=== PATIENT | male | born 1965 | race Caucasian/White ===

== ENCOUNTER 2020-08-03 05:45 | Day surgery (SDC) | payer OTHER ==
[2020-07-31 16:58] VITALS: BMI 33.3
[2020-08-03 11:38] VITALS: TEMP 97.8
[2020-08-03 12:04] VITALS: BP 133/87; PULSE 63
--- NOTE | 2020-08-06 17:05 | PATH ---
Surgical Pathology Report Patient Name: BEVERLY SKELTON [facility]. Rec. #: [id number] /Age/Gender: 1965 (Age: 55) / M Account: [id number] Location: U-ENDOSCOPY Taken: 08/03/2020 Received: 08/03/2020 Reported: 08/06/2020 Physicians: Chidi Garaz M.D. Specimen(s) Received A: BULB AND SECOND PORTION DUODENUM B: GASTRIC ANTRUM C: GASTRIC BODY D: DISTAL AND MID ESOPHAGUS E: PROXIMAL TRANSVERSE COLON POLYP Clinical History Dysphagia, colon cancer screening Postoperative diagnosis: Gastritis, duodenitis, diverticulosis, proximal transverse colon polyp Final Diagnosis A. DUODENUM, SECOND PORTION AND BULB, BIOPSY: DUODENAL MUCOSA WITH MILD CHRONIC DUODENITIS AND PRESERVED VILLOUS ARCHITECTURE. B. GASTRIC ANTRUM, BIOPSY: GASTRIC ANTRAL MUCOSA WITH SEVERE CHRONIC ACTIVE GASTRITIS. IMMUNOHISTOCHEMICAL STAIN FOR H. PYLORI IS POSITIVE (NUMEROUS). C. GASTRIC BODY, BIOPSY: GASTRIC BODY MUCOSA WITH SEVERE CHRONIC ACTIVE GASTRITIS. IMMUNOHISTOCHEMICAL STAIN FOR H. PYLORI IS POSITIVE (NUMEROUS). D. DISTAL AND MID ESOPHAGUS, BIOPSY: SQUAMOUS MUCOSA WITH CHANGES OF MILD REFLUX TYPE ESOPHAGITIS. E. PROXIMAL TRANSVERSE COLON, POLYP, BIOPSY: HYPERPLASTIC POLYP. [Positive and negative controls (internal if applicable) show appropriate results.] Electronically Signed Taryn Montero M.D. Gross Description A. Received in formalin, labeled "biopsy bulb and second portion of duodenum" are 3 [place], irregular portions of soft tissue ranging from 0.2-0.3 cm. in greatest dimension. The specimens are submitted in toto in one cassette. B. Received in formalin, labeled "biopsy gastric antrum" are 2 [place], irregular portions of soft tissue measuring 0.3 and 0.6 cm. in greatest dimension. The specimens are submitted in toto in one cassette. C. Received in formalin, labeled "biopsy gastric body" are 2 [place], irregular portions of soft tissue measuring 0.2 and 0.5 cm. in greatest dimension. The specimens are submitted in toto in one cassette. D. Received in formalin, labeled "biopsy distal and mid esophagus" are 4 [place], irregular portions of soft tissue ranging from 0.1-0.4 cm. in greatest dimension. The specimens are submitted in toto in one cassette. E. Received in formalin, labeled "biopsy proximal transverse colon" are 3 [place], irregular portions of soft tissue ranging from 0.1-0.3 cm. in greatest dimension. The specimens are submitted in toto in one cassette. 08/03/2020 formerly [facility]08/03/2020
== END 2020-08-03 12:32 | disposition home or self-care (01) ==
LOC: JASU-ENDO 05:45
PROVIDERS: ATTEND Internal Medicine Gastroenterology
PROC: 0DB98ZX Excision of Duodenum, Via Natural or Artificial Opening Endoscopic, Diagnostic (ICD-10-PCS; 2020-08-03)
PROC: 0DB68ZX Excision of Stomach, Via Natural or Artificial Opening Endoscopic, Diagnostic (ICD-10-PCS; 2020-08-03)
PROC: 0DB28ZX Excision of Middle Esophagus, Via Natural or Artificial Opening Endoscopic, Diagnostic (ICD-10-PCS; 2020-08-03)
PROC: 0DB38ZX Excision of Lower Esophagus, Via Natural or Artificial Opening Endoscopic, Diagnostic (ICD-10-PCS; 2020-08-03)
PROC: 0DBL8ZX Excision of Transverse Colon, Via Natural or Artificial Opening Endoscopic, Diagnostic (ICD-10-PCS; principal; 2020-08-03 10:30)
DX: Z12.11 Encounter for screening for malignant neoplasm of colon (principal); D12.3 Benign neoplasm of transverse colon; K57.30 Diverticulosis of large intestine without perforation or abscess without bleeding; K64.8 Other hemorrhoids; K29.80 Duodenitis without bleeding; K29.50 Unspecified chronic gastritis without bleeding; B96.81 Helicobacter pylori [H. pylori] as the cause of diseases classified elsewhere; K21.00 Gastro-esophageal reflux disease with esophagitis, without bleeding
CPT/HCPCS: 88305-TC; 88342-TC